=== PATIENT | male | born 1955 | race Caucasian/White ===

== ENCOUNTER → 2017-02-08 | Outpatient (CLI) | payer OTHER ==
[~2017-02-08] MED LIST: ADVIL200 MG PO; ASPIRIN EC325 MG PO; ASPIRIN LO-DOSE81 MG PO; CELEBREX100 MG PO; DILAUDID 2MG(HYD2 MG PO; ECOTRIN325 MG PO; OXYCONTIN EXTEN10 MG PO; ROXICODONE 5MG (5 MG PO
== END | disposition disaster alternative care site (69) ==
LOC: GRAD 13:24
DX: Z01.818 Encounter for other preprocedural examination (principal); M19.012 Primary osteoarthritis, left shoulder

== ENCOUNTER 2017-03-04 09:00 | Inpatient (IN) | payer OTHER ==
[~2017-03-04] VITALS: Ht 180.3 cm; Wt 108.0 kg
--- NOTE | ~2017-03-04 | HP ---
PAT[facility] 62 Y [address] ROOM: [place] [address] LOCATION: [facility] ADMIT DATE: 03/09/2017 History & Physical DISCHARGE DATE: FAMILY PHYSICIAN: PAOLA JOSEPH DO ATTENDING PHYSICIAN: ROYCE TILLMAN DATE OF SERVICE: CHIEF COMPLAINT: Left shoulder pain. HISTORY OF PRESENT ILLNESS: The patient is a 62-year-old male, who was admitted to the hospital today by Dr. Royce Tillman, orthopedic surgeon, with a diagnosis of DJD left shoulder. He is status post right total shoulder on 08/18/2016. The patient has undergone an uncomplicated procedure when I see him and is resting quietly in bed, not complaining of nausea, vomiting, chest pain, or shortness of breath. I told him I follow here for medical illness and also pain management. He and his understand. was present for the interview. MEDICATIONS: Aspirin 81 mg a day. ALLERGIES TO MEDICATIONS: None. SOCIAL HISTORY: Does not smoke. FAMILY HISTORY: Noncontributory. No problems of bleeding or problems of general anesthetic in the family. OPERATIONS: Status post right total shoulder. IMMUNIZATION STATUS: Unknown. REVIEW OF SYSTEMS: HEENT: No change in vision. No sore throat. No earache. ENDOCRINE: He is not a diabetic. No history of thyroid disease. LUNGS: No history of asthma or shortness of breath. HEART: No history of previous AK, hypertension, or chest pain with exertion. GI: No recent nausea, vomiting, or diarrhea. PAT[facility]'S NAME[facility] AGE: 62 Y [address] ROOM: [place] [address] LOCATION: [facility] ADMIT DATE: 03/09/2017 History & Physical DISCHARGE DATE: FAMILY PHYSICIAN: PAOLA JOSEPH DO ATTENDING PHYSICIAN: ROYCE TILLMAN : No dysuria. EXTREMITIES: As per Dr. Tillman. NEUROLOGIC: No history of seizures, syncope, or previous CVA. MENTAL STATUS: No recent history of depression or anxiety. SKIN: No recent rashes. PHYSICAL EXAMINATION: GENERAL: Dark-haired male, who appears his stated age. He is lying in bed with an ice bag on his left shoulder and his left arm in a sling. He is oriented to person, place, and time. Cognition is normal postop status. HEENT: Shows pupils react to light. TMs not visualized. Posterior pharynx is clear. Mucous membranes are moist. NECK: Unremarkable. No obvious thyroid enlargement. No adenopathy. I did not listen for a carotid bruit. LUNGS: Clear without wheeze or rub. HEART: Shows no murmur, gallop, or rub. ABDOMEN: Soft without point tenderness. PELVIC: Exam not done. RECTAL: Exam not done. EXTREMITIES: As mentioned. NEUROLOGIC: Grossly intact without lateralizing signs. Cranial nerves intact. Mental status normal. No sign of anxiety or depression. ASSESSMENT: 1. End-stage degenerative joint disease, left shoulder. 2. Status post left total shoulder today per Dr. Tillman. 3. Status post right total shoulder. PLAN: Follow daily. MD DAVID HALE/modl /[id number] D: T: [id number] HISTORY & PHYSICAL
--- NOTE | ~2017-03-04 | OR ---
PATIENT'S NAME: PATO SCHAEFER [facility] AGE: 62 Y [address] ROOM: [place] [address] LOCATION: G3 ADMIT DATE: 03/09/2017 OR/Procedure Report DISCHARGE DATE: FAMILY PHYSICIAN: PAOLA JOSEPH DO ATTENDING PHYSICIAN: ROYCE TILLMAN SURGEON: Royce Tillman MD PRODUCTION CREW SUPERVISOR: Jam Mitchell PA-C. An oral surgery assistant was necessary during the entire case. The oral surgery assistant helped with positioning the limb in space, soft tissue retraction, component positioning, as well as wound closure. 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 POSTOPERATIVE DIAGNOSES: 1. 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 2. Biceps tendinopathy. PROCEDURES PERFORMED: 1. Left total shoulder arthroplasty using a Tornier Simpliciti System with glenoid bone grafting. 2. Open biceps tenodesis. ANESTHESIA: General. TOURNIQUET: None. ESTIMATED BLOOD LOSS: 200 mL. DRAINS: None. COMPLICATIONS: None. INDICATIONS: Pato Schaefer is a 62-year-old male. He initially presented to my clinic with right shoulder pain. He underwent a right total shoulder arthroplasty approximately seven months ago. He was doing extremely well in that right side. He had no symptoms. He had full range of motion of that right shoulder following the replacement. He started developing pain and worsening symptoms on his contralateral left shoulder. X-ray showed end-stage arthritis. CT scan showed that the cuff was intact and did show a cyst within the glenoid. Given the fact that he had responded so well to the anatomic total shoulder on the contralateral side, he elected to proceed with surgery. We talked about the risk of bleeding, infection, damage to surrounding structures PATIENT'S NAME: PATO SCHAEFER [facility] AGE: 62 Y [address] ROOM: [place] [address] LOCATION: [facility] ADMIT DATE: 03/09/2017 OR/Procedure Report DISCHARGE DATE: FAMILY PHYSICIAN: PAOLA JOSEPH DO ATTENDING PHYSICIAN: ROYCE TILLMAN including blood vessels and nerves, potential need for future surgery, as well as the risk of shoulder stiffness. We also talked about the risks of anesthesia. PROCEDURE: Surgical marking pen was used to correctly identify the left shoulder as the surgical site. Consent had been signed and dated. He was taken back to the operating suite, where he was placed supine on the OR table. He underwent general anesthesia. Time-out was called by myself. During the time- out, the patient, the procedure to be performed, the dosing of the preoperative antibiotics, and the postoperative plan were reviewed by everyone in the room. The patient was positioned in a beach chair position. All bony prominences were well padded. The left upper extremity was then prepped and draped in a standard sterile fashion. I used a 10-blade scalpel to create the standard deltopectoral incision. I dissected down through the skin and the subcutaneous tissue. I identified the cephalic vein. I retracted the cephalic vein laterally with the deltoid. I freed up any deltoid adhesions. I was able to identify the conjoint tendon and retracted it gently medially. I released the upper 1 cm of the pectoralis major tendon. I then performed a soft tissue tenodesis with a long head of the biceps to the upper border of the pectoralis tendon using #2 FiberWire in a [id number] fashion. I then followed the tendon within the rotator interval. The supraspinatus was intact. I peeled the subscapularis off the lesser tuberosity and tagged it with a stitch. I ligated the three sister vessels. I was able to palpate the axillary nerve, and there was no tension on it. I then used a guide to perform the humeral head resection. I did this after the osteophytes were removed. I then put my thumb on the cancellous bone. There was no indentation. I felt like it would support the canal, sparing the implant. I then used a guidepin in the center-center position after I determined the humeral head nucleus as a size 3. I reamed over the top of that central guide pin to obtain concentric witness circles. I then impacted the size 3 nucleus with a head cover into position. This was a trial component. I then exposed my glenoid. Paralysis was confirmed. I was able to perform a 360-degree labral excision as well as a capsular release. I then used my sizing guide. I placed the central guide pin in a center-center position of the glenoid. I then concentrically reamed over the top with the hand-held reamer down to good bleeding subchondral bone. I then reamed the central drill hole for the peg. I then used the guide to drill the peripheral pegs. I then obtained hemostasis within each hole. Given the fact that there was a cyst on that CT scan of the glenoid, I did pack some bone reamings in around the cyst of glenoid through that central peg drill hole. I then used cement in the three peripheral pegs using a Jean-Pierre syringe, and then I hand placed the model L40 Aequalis glenoid into position. I bone grafted that central peg on the polyethylene. I held it in place with the cement and that was allowed to cure. PATIENT'S NAME: PATO SCHAEFER [facility] AGE: 62 Y [address] ROOM: [place] [address] LOCATION: [facility] ADMIT DATE: 03/09/2017 OR/Procedure Report DISCHARGE DATE: FAMILY PHYSICIAN: PAOLA JOSEPH DO ATTENDING PHYSICIAN: ROYCE TILLMAN I then turned my attention back to the humeral component. I put a trial component using a Simpliciti 56 mm x 21 mm head. I took the arm through motion. There was 50% spring back. There was no instability anteriorly or posteriorly and he had over 170 degrees of passive forward flexion and abduction without any evidence of impingement. I went ahead and opened the final components after the trial implants were removed. I placed two double-loaded all suture anchors within the lesser tuberosity. They were [employer] Q-Fix anchors. Once that was performed, I impacted the final size 3 Simpliciti nucleus as well as the Simpliciti standard 56 mm x 21 mm humeral head into position. I took the arm through range of motion, and had the same 50% spring back and at the same motion without any evidence of any instability and no impingement. I then fixed the subscapularis back to the lesser tuberosity using the anchors. I placed them in a vertical mattress fashion. I then closed the interval with an 0 Vicryl. Hemostasis was confirmed prior to doing this. I then closed the fascia with an 0 Vicryl. I closed the skin with a 2-0 Vicryl, followed by running 3-0 Monocryl and followed by olivia. There was an inaccurate needle count, so x-ray was brought in and an x-ray was obtained, which did not show any needle counts on the field. The needle was later found underneath the table. Dressings in the form of Xeroform, 4x4's, and Tegaderm tape was applied. POSTOPERATIVE CONDITION: He was transferred to the recovery room in stable condition, where he was found to be neurovascularly intact. MD JOSE D NEFF/negar /[id number] d: t: 03/10/17 1026, OPERATIVE SUMMARY
[~2017-03-04 09:00] MED LIST changes: -ASPIRIN EC325 MG PO; -ASPIRIN LO-DOSE81 MG PO; -ROXICODONE 5MG (5 MG PO
[2017-03-04] MEDS ORDERED: ASPIRIN LO-DOSE81 MG PO (09:24)
[2017-03-10] MEDS ORDERED: OXYCONTIN EXTEN10 MG PO (08:17)
[2017-03-10] MEDS ORDERED: ROXICODONE 5MG (5 MG PO (08:17)
[2017-03-10] MEDS ORDERED: ASPIRIN EC325 MG PO (08:38)
== END 2017-03-10 14:20 | disposition disaster alternative care site (69) | DRG 483 ==
LOC: G3N 03-09 09:01
PROVIDERS: ADMIT Orthopaedic Surgery Sports Medicine
PROC: 0RRK0JZ Replacement of Left Shoulder Joint with Synthetic Substitute, Open Approach (ICD-10-PCS; principal; 2017-03-09)
PROC: 0LS40ZZ Reposition Left Upper Arm Tendon, Open Approach (ICD-10-PCS; principal; 2017-03-09)
DX: M19.012 Primary osteoarthritis, left shoulder (principal); Z96.611 Presence of right artificial shoulder joint; Z79.82 Long term (current) use of aspirin
CPT/HCPCS: C1713; C1776; J0690; J2001; J2405; J7030